=== PATIENT | female | born 1980 | race Two or more races ===

== ENCOUNTER 2022-12-12 17:51 | Emergency (ER) | payer OTHER ==
[~2022-12-12] VITALS: Ht 160 cm; Wt 77.1 kg
[2022-12-12] MEDS ORDERED: METOPROLOL SUCC50 MG PO (19:18)
[2022-12-12] MEDS ORDERED: JENTADUETO 2.51 EAC1 PO (19:18)
[2022-12-12] MEDS ORDERED: AMLODIPINE BESY10 MG PO (19:18)
[2022-12-12] MEDS ORDERED: FARXIGA10 MG PO (19:18)
[2022-12-12] MEDS ORDERED: CANDESARTAN CIL16 MG PO (19:18)
== END 2022-12-12 21:24 | disposition home or self-care (01) ==
LOC: ER 17:51
DX: H81.13 Benign paroxysmal vertigo, bilateral (principal)